=== PATIENT | female | born 1945 | race Caucasian/White ===

== ENCOUNTER 2016-08-11 13:50 | Emergency (ER) | payer MEDICARE ==
[~2016-08-11] VITALS: Ht 157.5 cm; Wt 52.0 kg
[~2016-08-11 13:50] MED LIST: CETI10 PO; EFLO13.9 T-DERMAL; FISH1000 PO; OMEP20TA39 PO; VITA20002 PO; jakafi PO
[2016-08-11 13:52] VITALS: BP 173/79; PULSE 88; RESP 20; TEMP 97.5; O2SAT 100
[2016-08-11] MEDS ORDERED: SODIUM CHLOR 0.9% 1000 ML INJ 1,000 ML IV ONE (15:11)
[2016-08-11] MEDS ORDERED: SODIUM CHLORIDE 0.9% FLUSH 5 ML FLUSH IVF PRN (15:15)
--- NOTE | 2016-08-11 15:15 | PD ---
HPI Chief Complaint: Numbness/Tingling Time Seen by Provider: 15:11 Travel History International Travel<30 days: No Contact w/Intl Traveler<30days: No Traveled to known affect area: No History of Present Illness HPI 71-year-old female with history of myelodysplasia and polycythemia, currently eating radiation to her spleen for splenomegaly, presents to the ER today because she states that she has had paresthesias in both legs, the left part of her lip, left fingers, and headache over her right brow area. She states that symptoms have been coming and going intermittently. She states that the last time she had similar symptoms, it was because she was getting dehydrated and was not drinking enough. She states she had been out today and has not been drinking much fluid. She denies any vomiting, difficulty walking, difficulty talking, fevers, or any other symptoms. Symptoms seems to have started after her therapy today. Modifying Factors: None Associated Signs & Symptoms: Paresthesias in the legs, face, and hand, headache Risk Factors: None PFSH Past Medical History Cancer: Yes Cardiovascular Problems: No Chemotherapy: Yes Diabetes: No Diminished Hearing: No Endocrine: No GERD: Yes Genitourinary: No Hepatitis: No Hiatal Hernia: No Immune Disorder: No Musculoskeletal: No Neurologic: No Psychiatric: No Reproductive: No Respiratory: No Thyroid Disease: No Dilation and Curettage (D&C): Yes Tubal Ligation: Yes Past Surgical History AICD: No Appendectomy: Yes Cardiac Surgery: No Section: Yes Ear Surgery: No Endocrine Surgery: No Eye Surgery: No Genitourinary Surgery: No Gynecologic Surgery: Yes Joint Replacement: No Pacemaker: No Thoracic Surgery: No Tonsillectomy: Yes Other Surgery: Yes Social History Alcohol Use: No Tobacco Use: No Substance Use: No Allergies-Medications (Allergen,Severity, Reaction): Coded Allergies: Cortisone (Verified Allergy, Severe, 03/08/16) Iodine (Verified Allergy, Mild, RASH, 03/08/16) Penicillin (Verified Allergy, Mild, RASH, 03/08/16) Sulfa (Verified Allergy, Mild, RASH, 03/08/16) Eye Irrigating Solutions (Verified Allergy, Unknown, Rash, 08/11/16) "THE PRESERVATIVE IN EYE DROPS". Reported Meds & Prescriptions Reported Meds & Active Scripts Active Reported B-12 (Cyanocobalamin) 2,500 Mcg Subl 2,500 Mcg PO/SL DAILY Caltrate 600+D (Calcium Carbonate-Vitamin D) 600-400 Mg-Unit Chew 1 Chew PO HS Citracal Calcium+D Slow Release (Fihijfb-Ortrwtzmb-Buyhsfo D) 600-40-500 Mg-Mg- Unit Tab 1 Tab PO DAILY Krill Oil [place]-3 300 mg (Krill Oil) 1 Cap Cap 1 Cap PO DAILY Magnesium 500 Mg Tab 500 Mg PO DAILY Biotin 5,000 Mcg Cap 5,000 Mcg PO HS Vitamin D3 (Cholecalciferol) 2,000 Unit Cap 2,000 Units PO BID Potassium Gluconate 595 Mg Tab 595 Mg PO DAILY C-1000 (Ascorbic Acid) 1,000 Mg Tab 1,000 Mg PO DAILY Osteo Bi-Flex Advanced Do (Misc Natural Products) 1 Tab Tab 1 Tab PO DAILY Probiotic (Lactobacillus Acidophilus) 1 Cap Cap 1 Cap PO DAILY Trianex Topical (Triamcinolone Topical) 0.05 % Oint 1 Applic TOP DAILY PRN Clotrimazole Antifungal (Clotrimazole (Topical)) 1 % Cre 1 Applic TOP DAILY PRN Vaniqa Topical (Eflornithine HCl) 13.9% Cream 1 Applic TOPICAL BID PRN Desoximetasone Topical (Desoximetasone) 0.05% Cream 1 Applic TOPICAL BID PRN Zyrtec Allergy (Cetirizine HCl) 10 Mg Tab 10 Mg PO DAILY Omeprazole 20 Mg Tab 20 Mg PO DAILY Review of Systems Except as stated in HPI: all other systems reviewed are Neg Physical Exam Narrative GENERAL: Thin, well-developed, pleasant elderly white female patient in no acute distress. Awake, alert, oriented 3. Ambulatory on her own back and forth from the bathroom. SKIN: Warm and dry. HEAD: Atraumatic. Normocephalic. EYES: Pupils equal and round. No scleral icterus. No injection or drainage. ENT: No nasal bleeding or discharge. Mucous membranes pink and moist. NECK: Trachea midline. No JVD. CARDIOVASCULAR: Regular rate and rhythm. No murmur appreciated. RESPIRATORY: No accessory muscle use. Clear to auscultation. Breath sounds equal bilaterally. GASTROINTESTINAL: Abdomen soft, non-tender, nondistended. Hepatic and splenic margins not palpable. MUSCULOSKELETAL: No obvious deformities. No clubbing. No cyanosis. No edema. NEUROLOGICAL: Awake and alert. No obvious cranial nerve deficits. Motor grossly within normal limits. Normal speech. No pronator drift. PSYCHIATRIC: Appropriate mood and affect; insight and judgment normal. Data Data Last Documented VS Vital Signs Date Time Temp Pulse Resp B/P Pulse Ox O2 Delivery O2 Flow Rate FiO2 08/11/16 13:52 97.5 88 20 173/79 100 Room Air Orders Complete Blood Count With Diff (08/11/16 15:11) Comprehensive Metabolic Panel (08/11/16 15:11) Magnesium (Mg) (08/11/16 15:11) Ct Brain W/O Iv Contrast(Rout) (08/11/16 15:11) Ecg Monitoring (08/11/16 15:11) Iv Access Insert/Monitor (08/11/16 15:11) Oximetry (08/11/16 15:11) Sodium Chloride 0.9% Flush (Ns Flush) (08/11/16 15:15) Sodium Chlor 0.9% 1000 Ml Inj (Ns 1000 M (08/11/16 15:11) Acetaminophen (Tylenol) (08/11/16 16:30) Ondansetron Inj (Zofran Inj) (08/11/16 16:30) Labs Laboratory Tests Test 08/11/16 14:23 White Blood Count 3.2 TH/MM3 Red Blood Count 5.50 MIL/MM3 Hemoglobin 9.1 GM/DL Hematocrit 29.7 % Mean Corpuscular Volume 54.0 FL Mean Corpuscular Hemoglobin 16.5 PG Mean Corpuscular Hemoglobin 30.6 % Concent Red Cell Distribution Width 39.9 % Platelet Count 32 TH/MM3 Mean Platelet Volume 8.9 FL Neutrophils (%) (Auto) 84.1 % Lymphocytes (%) (Auto) 7.4 % Monocytes (%) (Auto) 3.1 % Eosinophils (%) (Auto) 5.0 % Basophils (%) (Auto) 0.4 % Neutrophils # (Auto) 2.7 TH/MM3 Lymphocytes # (Auto) 0.2 TH/MM3 Monocytes # (Auto) 0.1 TH/MM3 Eosinophils # (Auto) 0.2 TH/MM3 Basophils # (Auto) 0.0 TH/MM3 CBC Comment AUTO DIFF Differential Comment AUTO DIFF CONFIRMED Platelet Estimate LOW Platelet Morphology Comment NORMAL Basophilic Stippling FAINT Tear Drop Cells 2+ Ovalocytes 1+ Acanthocytes OCC Keratocytes OCC Sodium Level 133 MEQ/L Potassium Level 5.2 MEQ/L Chloride Level 100 MEQ/L Carbon Dioxide Level 24.4 MEQ/L Anion Gap 9 MEQ/L Blood Urea Nitrogen 15 MG/DL Creatinine 0.70 MG/DL Estimat Glomerular Filtration 82 ML/MIN Rate Random Glucose 89 MG/DL Calcium Level 8.6 MG/DL Magnesium Level 2.0 MG/DL Total Bilirubin 1.3 MG/DL Aspartate Amino Transf 32 U/L (AST/SGOT) Alanine Aminotransferase 22 U/L (ALT/SGPT) Alkaline Phosphatase 96 U/L Total Protein 6.5 GM/DL Albumin 3.7 GM/DL [facility] Medical Decision Making Medical Screen Exam Complete: Yes Emergency Medical Condition: Yes Medical Record Reviewed: Yes Interpretation(s) Laboratory Tests Test 08/11/16 14:23 White Blood Count 3.2 TH/MM3 (4.0-11.0) Red Blood Count 5.50 MIL/MM3 (4.00-5.30) Hemoglobin 9.1 GM/DL (11.6-15.3) Hematocrit 29.7 % (35.0-46.0) Mean Corpuscular Volume 54.0 FL (80.0-100.0) Mean Corpuscular Hemoglobin 16.5 PG (27.0-34.0) Mean Corpuscular Hemoglobin 30.6 % Concent (32.0-36.0) Red Cell Distribution Width 39.9 % (11.6-17.2) Platelet Count 32 TH/MM3 (150-450) Neutrophils (%) (Auto) 84.1 % (16.0-70.0) Lymphocytes (%) (Auto) 7.4 % (9.0-44.0) Eosinophils (%) (Auto) 5.0 % (0.0-4.0) Lymphocytes # (Auto) 0.2 TH/MM3 (1.0-4.8) Platelet Estimate LOW (NORMAL) Basophilic Stippling FAINT (NORMAL) Tear Drop Cells 2+ (NORMAL) Ovalocytes 1+ (NORMAL) Acanthocytes OCC (NORMAL) Keratocytes OCC (NORMAL) Sodium Level 133 MEQ/L (136-145) Potassium Level 5.2 MEQ/L (3.5-5.1) Estimat Glomerular Filtration 82 ML/MIN (>89) Rate Total Bilirubin 1.3 MG/DL (0.2-1.0) Differential Diagnosis Paresthesias, headachedehydration versus electrolyte abnormalities versus CVA/ TIA Narrative Course Patient does not have any significant focal neurological deficits. Symptoms seem symptoms as mostly or paresthesias. Her CAT scan of the brain does reveal some lytic lesions in the skull and questionable asymmetrical white matter changes in the left frontal lobe. No signs of bleed. Case was briefly discussed with Dr. Smith who is covering for Dr. menon, patient's oncologist, and he states that there does not appear to be any focal deficits are concerning at this point and that the patient can be followed up with Dr. menon for this issue as a outpatient. Return for any worsening in symptoms as necessary. The plan has been discussed with her and she states understanding. Diagnosis Primary Impression: Paresthesias Disposition: 01 DISCHARGE HOME Condition: Stable Louis Collazo MD Aug 11, 2016 15:15
[2016-08-11] MEDS ORDERED: POTA595T PO (15:41)
[2016-08-11] MEDS ORDERED: KRIL300C3 PO (15:41)
[2016-08-11] MEDS ORDERED: CYAN5SUB PO/SL (15:41)
[2016-08-11] MEDS ORDERED: OSTETAB4 PO (15:41)
[2016-08-11] MEDS ORDERED: BIOT50005 PO (15:41)
[2016-08-11] MEDS ORDERED: ZYRT10TA PO (15:41)
[2016-08-11] MEDS ORDERED: VITA2000 PO (15:41)
[2016-08-11] MEDS ORDERED: OMEP20TA PO (15:41)
[2016-08-11] MEDS ORDERED: NICO2GUM68 TOP (15:41)
[2016-08-11] MEDS ORDERED: [UNRECOGNIZED DRUG - CODE] PO (15:41)
[2016-08-11] MEDS ORDERED: EFLO13.9 TOPICAL (15:41)
[2016-08-11] MEDS ORDERED: TRIA1OIN2 TOP (15:41)
[2016-08-11] MEDS ORDERED: [UNRECOGNIZED DRUG - OTHER] TOPICAL (15:41)
[2016-08-11] MEDS ORDERED: LACTCAP8 PO (15:41)
[2016-08-11] MEDS ORDERED: CITRTAB16 PO (15:41)
[2016-08-11] MEDS ORDERED: MAGN500T4 PO (15:41)
[2016-08-11] MEDS ORDERED: CALTCHW5 PO (15:41)
[2016-08-11 15:47] LABS: AUTOMATED NEUTROPHIL # 2.7 TH/MM3 (1.8-7.7); BASOPHIL % 0.4 % (0.0-2.0); EOSINOPHIL # 0.2 TH/MM3 (0-0.4); HEMATOCRIT 29.7 % (35.0-46.0); LYMPH % 7.4 % (9.0-44.0); LYMPHOCYTE # 0.2 TH/MM3 (1.0-4.8); MEAN CORPUSCULAR HEMOGLOBIN 16.5 PG (27.0-34.0); MEAN CORPUSCULAR HGB CONC 30.6 % (32.0-36.0); MONO % 3.1 % (0.0-8.0); NEUT % 84.1 % (16.0-70.0); PLATELET COUNT 32 TH/MM3 (150-450); RED CELL DISTRIBUTION WIDTH 39.9 % (11.6-17.2); WHITE BLOOD COUNT 3.2 TH/MM3 (4.0-11.0)
[2016-08-11 15:59] LABS: HEMO FLAGS AUTO DIFF
[2016-08-11 16:01] LABS: ALKALINE PHOSPHATASE 96 U/L (45-117); ALT (GPT) 22 U/L (10-53); TOTAL BILIRUBIN ADULT 1.3 MG/DL (0.2-1.0)
[2016-08-11 16:20] LABS: ANION GAP 9 MEQ/L (5-15); AST (GOT) 32 U/L (15-37); BICARBONATE 24.4 MEQ/L (21.0-32.0); BLOOD UREA NITROGEN 15 MG/DL (7-18); CHLORIDE 100 MEQ/L (98-107); GLOMERULAR FILTRATION RATE 82 ML/MIN (>89); SODIUM (NA) 133 MEQ/L (136-145)
[2016-08-11 16:27] LABS: POTASSIUM 5.2 MEQ/L (3.5-5.1)
[2016-08-11] MEDS ORDERED: ONDANSETRON HCL 4 MG/2 ML VIAL IV PUSH ONE (16:30)
[2016-08-11] MEDS ORDERED: ACETAMINOPHEN 500 MG CPLT PO ONE (16:30)
--- NOTE | 2016-08-11 16:39 | RADRPT ---
EXAM DATE/TIME: 08/11/2016 16:08 [facility] COMPARISON: No previous studies available for comparison. INDICATIONS : Paresthesias both legs. RADIATION DOSE: 56.77 CTDIvol (mGy) MEDICAL HISTORY : Myelodysplasia and polycythemia SURGICAL HISTORY : Appendectomy. section. ENCOUNTER: Initial ACUITY: 1 day PAIN SCALE: 3/10 LOCATION: cranial TECHNIQUE: Multiple contiguous axial images were obtained of the head. Using automated exposure control and adj ustment of the mA and/or kV according to patient size, radiation dose was kept as low as reasonably a chievable to obtain optimal diagnostic quality images. FINDINGS: Low-attenuation seen in the bilateral periventricular white matter, probably chronic but somewhat asy mmetric, left frontal lobe affected more so than right. Superimposed vasogenic edema from underlying mass not excludable. No bleed. No mass effect or midline shift. No evidence of an acute ischemic even t. Bone window images show an intact skull. Innumerable sub-5 mm lytic lesions are seen of the calv arium. Visualized paranasal sinuses and mastoid air cells are clear. CONCLUSION: 1. Asymmetric low density in the periventricular white matter of the left frontal lobe. Contrast enha nced study recommended, preferably MRI. 2. No bleed. 3. Numerous small lytic lesions of the skull. No fracture. Joey Salcedo MD on August 11, 2016 at 16:35 Board Certified Radiologist. This report was verified electronically.
[2016-08-11 16:43] LABS: ACANTHOCYTES OCC (NORMAL); KERATOCYTES OCC (NORMAL); OVALOCYTES 1+ (NORMAL)
[2016-08-11 16:45] LABS: TEARDROP RBCS 2+ (NORMAL)
[2016-08-11 16:46] LABS: PLATELET ESTIMATE SMEAR LOW (NORMAL); PLATELET MORPHOLOGY NORMAL (NORMAL); SCAN/DIFF AUTO DIFF CONFIRMED
== END 2016-08-11 17:38 | disposition home or self-care (01) ==
LOC: NEPC 13:50
DX: R20.2 Paresthesia of skin (principal); D46.9 Myelodysplastic syndrome, unspecified; D75.1 Secondary polycythemia
CPT/HCPCS: 70450; 80053; 83735; 85025; 96374; 99284; J2405; J7030